=== PATIENT | male | born 1985 | race Two or more races ===

== ENCOUNTER 2021-01-29 23:31 | Emergency (ER) | payer SELFPAY ==
[~2021-01-29] VITALS: Ht 167.6 cm; Wt 77.2 kg
--- NOTE | 2021-01-30 00:52 | PHYS DOC ---
General Adult HPI: HPI: Patient is a 35 year old male who presents with 10-year history of epigastric abdominal pain, which is intermittent. He admits that his pain is often worse around the anniversary of his mother's . His mother from colon cancer many years ago. He reports that he was seen in ER in [place] a 7 years ago for the same pain, he reports that they did not perform any testing on him, but he was prescribed Pepcid. He did not continue taking this. He intermittently takes [id number] omeprazole. He reports nausea without vomiting. He denies constipation or diarrhea. He does report some urinary urgency. He denies lower abdominal pain. He denies back or flank pain. The pain is occ asionally postprandial, but not always. He denies chest pain or dyspnea. He denies fevers or chills. He denies previous abdominal surgeries. Denies any weight loss or anorexia. He indicates having a robust appetite, eating and drinking normally. Review of Systems: Review of Systems: Constitutional: Denies fever or chills. [] Eyes: Denies change in visual acuity. [] HENT: Denies nasal congestion or sore throat. [] Respiratory: Denies cough or shortness of breath. [] Cardiovascular: Denies chest pain or edema. [] GI: Epigastric abdominal pain and nausea. No vomiting. No diarrhea, constipation, melena or hematochezia. : Urinary urgency. Denies gross hematuria or dysuria. Musculoskeletal: Denies back pain or joint pain. [] Integument: Denies rash. [] Neurologic: Denies headache, focal weakness or sensory changes. [] Psychiatric: [place] and worry as it pertains to his abdominal pain and his mother's previous history of colon cancer. [] Heart Score: C/O Chest Pain: No Risk Factors: Risk Factors: DM, Current or recent (<one month) smoker, HTN, HLP, family history of CAD, obesity. Risk Scores: Score 0 - 3: 2.5% MACE over next 6 weeks - Discharge Home Score 4 - 6: 20.3% MACE over next 6 weeks - Admit for Clinical Observation Score 7 - 10: 72.7% MACE over next 6 weeks - Early Invasive Strategies Physical Exam: PE: Constitutional: Well developed, well nourished, no acute distress, non-toxic appearance. [] HENT: Normocephalic, atraumatic, mucous membranes are moist Eyes: Sclera clear, anicteric, conjunctival normal Neck: Trachea midline, normal range of motion, no tender Cardiovascular:Heart rate regular rhythm, +2 radial and +2 posterior tibial p ulses bilaterally Lungs & Thorax: Bilateral breath sounds clear to auscultation [] Abdomen: Abdomen is soft, nondistended, I am unable to elicit any tenderness at all, no rebound or guarding certainly. Normal bowel sounds noted. No palpable masses organomegaly. No CVA tenderness. No flank abdominal ecchymoses. No palpable pulsatile mass Skin: Warm, dry, no erythema, no rash. [] Back: No tenderness, no CVA tenderness. [] Extremities: No tenderness, no cyanosis, no clubbing, ROM intact, no edema. No calf tenderness. Neurologic: He is awake, alert, oriented x3, ambulatory with a steady gait, speech is clear and fluent Psychologic: Affect normal, judgement normal, mood normal. [] EKG: EKG: [] Radiology/Procedures: Radiology/Procedures: IMAGING REPORT Signed PATIENT: MATTHIEU VENEGASOUNT: [id number] : 1985 LOCATION: ER AGE: 35 SEX: M EXAM STATUS: REG ER ORD. PHYSICIAN: MILY HAWKINS DO REASON: abdominal pain;OMNI 300, 75ML PROCEDURE: CT ABD PELV W/ IV CONTRST ONLY CT ABDOMEN+PELVIS W History: abdominal pain Comparison: None. Technique: After administration of intravenous contrast, helical CT of the abdomen and pelvis was performed from the lung bases through the ischial tuberosities. Coronal and sagittal reconstructions were obtained. 75 mL of Omnipaque 300 were used. One or more of the following dose reduction techniques were utilized: Automated exposure control (AEC), Adjustment of mA and/or kV according to patient size, Use of iterative reconstruction technique such as ASiR, CT scan done according to ALARA and image gently/image wisely Abdomen Findings: The visualized lung bases are clear. The liver, gallbladder, pancreas, and spleen are normal. Indeterminate left adrenal 1.3 cm lesion (33 Hounsfield units). Symmetric renal enhancement. There is no focal renal mass. There is no hydronephrosis. The visualized loops of small bowel are normal. The visualized loops of large bowel are normal. There is no evidence of bowel obstruction. Appendix is normal. There is no free fluid. There is no mesenteric or retroperitoneal adenopathy. The abdominal aorta is normal in caliber. Pelvis Findings: Urinary bladder is normal. No pelvic free fluid. There is no pelvic or inguinal adenopathy. There is no acute bony abnormality. IMPRESSION: 1. No acute findings. 2. Indeterminate left adrenal 1.3 cm lesion. This could be further characterized with a multiphasic adrenal protocol CT. Electronically signed by: Alan Wade MD (01/30/2021 3:23 AM) [facility] DICTATED and SIGNED BY: ALAN WADE MD DATE: 01/30/21 [id number] Course & Med Decision Making: Course & Med Decision Making Pertinent Labs and Imaging studies reviewed. (See chart for details) The patient declined pain medicine or nausea medicine here. He is given a liter of IV fluids. He is resting comfortably. He has a benign, nonsurgical abdominal exam. CT of the abdomen pelvis is unremarkable. Laboratory exams are unremarkable. I have discussed the findings, differential diagnosis and plan of care with the patient. He feels very assured and is relieved that he does not have any acute abnormalities noted. I told him that he needs to follow-up with her primary care physician, he is given outpatient resources for this. I told him that if his symptoms persist, as they have been for the past 10 years, he should strongly consider outpatient GI consultation. I recommended that he eat a bland diet. He should avoid alcohol and excess use of NSAIDs. Return precautions are given. He verbalizes understanding. Kezia Disclaimer: Kezia Disclaimer: This electronic medical record was generated, in whole or in part, using a voice recognition dictation system. Departure Departure Impression: Primary Impression: Chronic upper abdominal pain Disposition: HOME / SELF CARE / HOMELESS Condition: STABLE Referrals: NO PCP (PCP) Patient Instructions: Abdominal Pain (Nonspecific) Additional Instructions: Return to the ER for acute changes in pain, if you develop uncontrolled vomiting, vomiting blood, temperature 100.4 or higher, bloody stools, or any other concerns. Please establish care with a primary care physician. You may need to see outpatient GI services as well, to further delineate your abdominal pain symptoms. You may continue taking the omeprazole daily. Use the nausea medicine as needed/as directed. Scripts Ondansetron Hcl (ZOFRAN) 4 Mg Tablet 4 MG PO PRN TID PRN for VOMITING, #20 TAB nausea/vomiting Prov: MILY HAWKINS DO 01/30/21 MILY AHWKINS DO Jan 30, 2021 00:52
[2021-01-30] MEDS ORDERED: IV NORMAL SALINE 500ML BAG 500 ML IV ONE (01:15)
[2021-01-30 01:24] LABS: BILIRUBIN,URINE NEGATIVE (NEG); CLARITY,URINE CLEAR; COLOR,URINE YELLOW; NITRITE,URINE NEGATIVE (NEG); PH,URINE 6.5 (<5.0-8.0); PROTEIN,URINE NEGATIVE (NEG-TRACE)
[2021-01-30 01:34] LABS: AMORPHOUS SEDIMENT,UR PRESENT /HPF; BACTERIA,URINE 0 /HPF (0-FEW); WBC,URINE RARE /HPF (0-4)
[2021-01-30 01:48] LABS: BASO % 1 % (0-3); EOS # 0.3 x10^3/uL (0.0-0.7); EOS % 4 % (0-3); HEMATOCRIT 40.2 % (39.0-53.0); HEMOGLOBIN 14.3 g/dL (13.0-17.5); LYMPH # 2.5 x10^3/uL (1.0-4.8); LYMPH % 31 % (24-48); MEAN CORPUSCULAR HEMOGLOBIN 30 pg (25-35); MEAN CORPUSCULAR HGB CONC 36 g/dL (31-37); MEAN CORPUSCULAR VOLUME 85 fL (79-100); MONO # 0.7 x10^3/uL (0.0-1.1); MONO % 9 % (0-9); NEUT # 4.4 x10^3/uL (1.8-7.7); NEUT % 55 % (31-73); PLATELET COUNT 307 x10^3/uL (140-400); RED BLOOD COUNT 4.74 x10^6/uL (4.30-5.70); RED CELL DISTRIBUTION WIDTH 12.7 % (11.5-14.5); WHITE BLOOD COUNT 7.9 x10^3/uL (4.0-11.0)
[2021-01-30 01:56] LABS: CALCIUM 9.1 mg/dL (8.5-10.1); CREATININE 0.5 mg/dL (0.7-1.3); GFR 190.3; POTASSIUM 3.9 mmol/L (3.5-5.1)
[2021-01-30 02:04] LABS: ALBUMIN 3.2 g/dL (3.4-5.0); ALBUMIN/GLOBULIN RATIO 0.8 (1.0-1.7); TOTAL BILIRUBIN 0.3 mg/dL (0.2-1.0); TOTAL PROTEIN 7.4 g/dL (6.4-8.2)
[2021-01-30] MEDS ORDERED: CONTRAST GIVEN. MC PRN (03:15)
[2021-01-30] MEDS ORDERED: IOHEXOL 300 MG/ML 100ML VIAL. IV ONE (03:15)
--- NOTE | 2021-01-30 03:25 | RAD ---
CT ABDOMEN+PELVIS W History: abdominal pain Comparison: None. Technique: After administration of intravenous contrast, helical CT of the abdomen and pelvis was per formed from the lung bases through the ischial tuberosities. Coronal and sagittal reconstructions wer e obtained. 75 mL of Omnipaque 300 were used. One or more of the following dose reduction techniques were utilized: Automated exposure control (AEC), Adjustment of mA and/or kV according to patient size , Use of iterative reconstruction technique such as ASiR, CT scan done according to ALARA and image g ently/image wisely Abdomen Findings: The visualized lung bases are clear. The liver, gallbladder, pancreas, and spleen are normal. Indeterminate left adrenal 1.3 cm lesion (33 Hounsfield units). Symmetric renal enhancement. There is no focal renal mass. There is no hydronephrosis. The visualized loops of small bowel are normal. The visualized loops of large bowel are normal. There is no evidence of bowel obstruction. Appendix is normal. There is no free fluid. There is no mesenteric or retroperitoneal adenopathy. The abdominal aorta is normal in caliber. Pelvis Findings: Urinary bladder is normal. No pelvic free fluid. There is no pelvic or inguinal adenopathy. There is no acute bony abnormality. IMPRESSION: 1. No acute findings. 2. Indeterminate left adrenal 1.3 cm lesion. This could be further characterized with a multiphasic a drenal protocol CT. Electronically signed by: Jozef Kraft MD (01/30/2021 3:23 AM) [facility]
[2021-01-30 04:26] VITALS: BP 110/72
[2021-01-30] MEDS ORDERED: ONDA4TAB7 PO (04:31)
== END 2021-01-30 04:45 | disposition home or self-care (01) ==
LOC: ER 23:31
DX: R10.13 Epigastric pain (principal); R11.0 Nausea; G89.29 Other chronic pain
CPT/HCPCS: 36415; 74177; 80053; 81001; 83690; 85025; 96360; 96361; 99285; J7040; Q9967